=== PATIENT | female | born 1935 | race Caucasian/White ===

== ENCOUNTER 2017-08-29 12:56 | Inpatient (IN) | payer OTHER, MEDICAID ==
[~2017-08-29] VITALS: Ht 154.9 cm; Wt 54.0 kg
[~2017-08-29 12:56] MED LIST: ACET-1172 PO; ARIP5TAB10 PO; BENA10TA2 PO; BETH50TA8 PO; CALC-226 PO; CARV6.2554 PO; CEPH250C PO; CLOP75TA2 PO; DICL75TA5 PO; DICY10CA13 PO; ESCI20TA PO; GLIP5TAB13 PO; GLYB1TAB2 PO; HYDR-3698 PO; ISOS60TA6 PO; LANS30CA10 PO; LIPA1CAP5 PO; LORA-258 PO; MELO15TA13 PO; NITR-85 PO; SAXA1TBM3 PO; SIMV40TA2 PO; VERA300C6 PO
[2017-08-29 13:00] VITALS: BP_SYST 73
--- NOTE | 2017-08-29 13:00 | NUR ---
Pt c/o generalized weakness, dizziness, Nausea x 1 hour. Pt AAOx2, confused, able to state name and describe symptoms. Pt denies c/o C/P or SOB.
--- NOTE | 2017-08-29 13:00 | NUR ---
PATIENT BROUGHT IN BY ALS FOR NAUSEA, VOMITING, AND DIZZINESS WORST FOR THE PAST HOUR. HYPOTENSIVE UPON ARRIVAL, DENIES PAIN, LANGUAGE BARRIER NOTED FRISIAN SPEAKING. PLACED IN BED 3.
--- NOTE | 2017-08-29 13:02 | NUR ---
MD PEÑALOZA AT BEDSIDE.
[2017-08-29] MEDS ORDERED: NACL 0.9% 1,000 ML IV ONE ×2 (13:15→14:15)
[2017-08-29 13:45] LABS: BASOPHILS # (AUTO) 0.1 K/uL (0.0-0.2); EOSINOPHILS # (AUTO) 0.2 K/uL (0.0-0.4); HEMOGLOBIN 12.1 g/dL (12.0-16.0); LYMPHOCYTES # (AUTO) 6.5 K/uL (1.0-5.5); MEAN CORPUSCULAR VOLUME 90 fL (79.0-98.0); MONOCYTES # (AUTO) 0.7 K/uL (0.0-1.0)
--- NOTE | 2017-08-29 13:50 | NUR ---
Unsuccessful PIV attempts x [address] Cutler.
[2017-08-29 13:53] LABS: BASOPHILS % (AUTO) 0.8 % (0.0-2.0); EOSINOPHILS % (AUTO) 1.3 % (0.0-4.0); HEMATOCRIT 36.7 % (36-48); LYMPHOCYTES % (AUTO) 45.7 % (20.5-51.5); MEAN CORPUSCULAR HEMOGLOBIN 30 pg (27-31); MEAN CORPUSCULAR HGB CONC 33 % (32-36); MONOCYTES % (AUTO) 4.6 % (1.7-9.3); NEUTROPHILS # (AUTO) 6.6 K/uL (1.8-7.7); NEUTROPHILS % (AUTO) 47.6 % (40.0-70.0); PLATELET COUNT (AUTO) 241 K/uL (130-430); RED BLOOD CELL COUNT(AUTO) 4.11 MIL/uL (4.2-6.2); RED CELL DISTRIBUTION WIDTH 13.1 % (9.0-15.0); WHITE BLOOD COUNT (AUTO) 14.1 K/uL (4.8-10.8)
[2017-08-29 13:54] LABS: ANION GAP 15 (5-15); CALCIUM 9.1 mg/dL (8.4-11.0); CHLORIDE 101 mmol/L (98-107); CREATININE 1.46 mg/dL (0.55-1.30); GLUCOSE 334 mg/dL (70-99); POTASSIUM 5.4 mmol/L (3.5-5.1); SODIUM SERUM 135 mmol/L (136-145); UREA NITROGEN, BLOOD 20 mg/dL (8-21)
[2017-08-29 13:58] LABS: PROTHROMBIN TIME 10.4 SECS (9.5-12.5)
[2017-08-29 13:59] LABS: ALANINE AMINOTRANSFERASE 30 U/L (12-78); ALBUMIN 3.6 g/dL (3.4-4.8); ASPARTATE AMINOTRANSFERASE 25 U/L (10-37); TOTAL BILIRUBIN 0.3 mg/dL (0.0-1.0)
--- NOTE | 2017-08-29 14:05 | NUR ---
X-ray at bedside.
[2017-08-29] MEDS ORDERED: LEVOFLOXACIN 500 MG/D5W 100 ML IV ONE (14:30)
--- NOTE | 2017-08-29 14:30 | NUR ---
# 16 FR Dawson catheter with use of sterile technique. Immediate return of 50 clear yellow urine noted. Bedside drainage bag placed below level of bladder. Urine sample collected and sent to lab. Pt tolerated procedure well. Patient unable to toilet self.
--- NOTE | 2017-08-29 14:50 | NUR ---
Pt c/o pain to Right upper arm. No swelling or redness noted to site. No blood return to PIV. PIV discontinued with angiocath tip intact, secured with pressure dsg, no bleeding. Pt able to move Right arm without difficulty, skin pink, warm, dry with cap refill < 3 sec to nail beds.
[2017-08-29 14:52] LABS: BILIRUBIN,URINE NEGATIVE (NEGATIVE); CLARITY/URINE CLEAR (CLEAR); COLOR,URINE YELLOW (YELLOW); GLUCOSE,URINE TRACE (NEGATIVE); KETONES,URINE NEGATIVE (NEGATIVE); LEUKOCYTE ESTERASE ,URINE 1+ (NEGATIVE); NITRITE, URINE NEGATIVE (NEGATIVE); PH,URINE 5.5 (5.0-8.0); PROTEIN URINE TRACE (NEGATIVE); UROBILINOGEN,URINE 0.2 (0.2-1.0)
[2017-08-29 14:56] LABS: BLOOD, URINE TRACE (NEGATIVE)
[2017-08-29 15:13] LABS: BACTERIA,URINE FEW /HPF (None Seen)
--- NOTE | 2017-08-29 15:23 | NUR ---
Patient will be admitted to care of Dr. Landry. Admitted to Tele unit. Will go to room 104A. Belongings list completed. Summary report printed. Report will be given at bedside.
[2017-08-29] MEDS ORDERED: DICY10CA59 PO (15:47)
[2017-08-29] MEDS ORDERED: BENA20TA2 PO (15:47)
[2017-08-29] MEDS ORDERED: VERA120C2 PO (15:47)
[2017-08-29] MEDS ORDERED: LIP10 PO (15:47)
[2017-08-29] MEDS ORDERED: SULF1TAB3 PO (15:47)
--- NOTE | 2017-08-29 15:47 | NUR ---
Medication reconciliation completed with information provided by pt. Any prior medication reconciliation on file was reviewed and corrected.
--- NOTE | 2017-08-29 15:53 | NUR ---
ADMISSION NOTE Received patient from ER via uma, received report from MAXX ETIENNE. Patient admitted with diagnosis of UTI/POSSIBLE SEPSIS/DEHYDRATION. Patient oriented to hospital routine, call light, toileting and safety-patient verbalized understanding.
[2017-08-29 15:54] VITALS: BP_SYST 118
--- NOTE | 2017-08-29 16:10 | NUR ---
O2 Patient placed on 2L via NC, saturation is 88%, patient has cold extremities and is wearing fingernail malian as well, continuing to monitor. Addendum: 08/29/17 at 1617 by Benitez Quesada RN Placed the patient on 4L via NC, O2 saturation now 92%, breathing is even and unlabored.
--- NOTE | 2017-08-29 16:17 | NUR ---
Transfer of Care to Ana ETIENNE, endorsed report, O2 saturation, sepsis protocol initiated in ER and reassessment needed, patient potassium level 5.4 and MD ordered 1/2NS + 40 MEQ of potassium for maintenance IVF recommend different order.
[2017-08-29 16:22] VITALS: BP_SYST 118
[2017-08-29] MEDS ORDERED: POTASSIUM CHLORIDE 40 MEQ in 0.45% NACL 1,000 ML IV SCH (17:00)
--- NOTE | 2017-08-29 17:30 | NUR ---
DR. GLEZ NOTIFIED THE DOCTOR THAT PATIENT'S POTASSIUM IS HIGH AND IV FLUIDS WITH POTASSIUM IS HIGH, DR. GLEZ ORDERED FOR PATIENT TO BE ON 1/2 NS AT 100 AND HE SAID HE WILL BE IN TO SEE THE PATIENT TO PUT IN ORDERS.
[2017-08-29] MEDS: 0.45% NACL 1,000 ML IV SCH (17:41)
--- NOTE | 2017-08-29 17:42 | NUR ---
RN ROUND PATIENT CURRENTLY EATING DINNER AT THIS TIME, PATIENT IN STABLE CONDITION, CALL GUZMAN WITHIN REACH, WILL CONTINUE TO MONITOR PATIENT, FALL PRECAUTIONS IN PLACE.
[2017-08-29] MEDS ORDERED: ONDANSETRON HCL 4 MG/2 ML VIAL IVP PRN (18:00)
[2017-08-29] MEDS: MORPHINE 2 MG/ML INJ. SYRINGE IVP PRN (18:26)
[2017-08-29 18:30] VITALS: BP_SYST 135
--- NOTE | 2017-08-29 18:32 | NUR ---
CLOSING NOTE PATIENT GIVEN PAIN MEDICATION DUE TO GENERALIZED PAIN, PATIENT NOW ASKING FOR LIGHT TO BE TURNED OFF TO GET SOME REST, ALL NEEDS MET, WILL ENDORSE PATIENT TO CANDY COOKER HELPER NURSE, CALL GUZMAN LEFT WITHIN REACH, BED IN LOWEST POSITION, SIDE RAILS UP, FALL PRECAUTIONS IN PLACE.
[2017-08-29] MEDS: INSULIN REGULAR, HUMAN 100 UNITS/ML, 10 ML VIAL (novoLIN R) SUBCUT PRN ×2 (19:25→21:20)
[2017-08-29 20:00] VITALS: BP_SYST 131
[2017-08-29] MEDS ORDERED: DICLOFENAC SODIUM 25 MG TABLET.DR PO SCH (20:00)
[2017-08-29] MEDS ORDERED: ACETAMINOPHEN/CODEINE 300 MG-30 MG TABLET PO SCH (20:00)
--- NOTE | 2017-08-29 20:00 | NUR ---
Initial PM Note Pt was received lying in bed fully awake, alert and oriented x3. Pt is Lithuanian Speaking and able to make her needs known. No c/o pain or discomfort at this time. O2 sat is 96% on oxygen at 2l/min per NC. IVF of 1/2 NS is infusing well in LAC at 100ml/hr without any signs of infiltration. Dawson Cath to gravity drainage noted with clear yellowish urine. Fall and safety precautions are in place. Call light is with pt and bed alarm is on.
--- NOTE | 2017-08-29 20:40 | NUR ---
Family Pt's daughter Steph Bautista called and was given update through an Life Sciences Manager. Steph stated she will call again tomorrow.
[2017-08-29] MEDS ORDERED: CEPHALEXIN 250 MG CAPSULE PO SCH (21:00)
[2017-08-29] MEDS: LEVOFLOXACIN 250 MG/D5W 50 ML IV SCH (21:00)
[2017-08-29] MEDS ORDERED: DICYCLOMINE HCL 10 MG CAPSULE PO SCH (21:00)
--- NOTE | 2017-08-29 21:00 | NUR ---
Report Report was given to Nurse Stefanie Caba for continuity of pt's nursing care.
--- NOTE | 2017-08-29 21:01 | NUR ---
OPENING NOTES PATIENT IN BED RESTING. NO ACUTE DISTRESS OR SOB NOTED. PATIENT ABLE TO VERBALIZE UNDERSTANDING OF CALL LIGHT AND HOW TO USE IT. STATES NAME AND DATE OF . IV PATENT WITH NO REDNESS NOTED. IVF RUNNING ORDERED. ALL NEEDS MET AT THIS TIME.
[2017-08-29] MEDS: BETHANECHOL CHLORIDE 25 MG TABLET (URECHOLINE) PO SCH (21:15)
[2017-08-29] MEDS: CARVEDILOL 6.25 MG TABLET (COREG) PO SCH (21:16)
[2017-08-29] MEDS: ARIPiprazole 5 MG TAB PO SCH (21:16)
[2017-08-29] MEDS: CITALOPRAM HYDROBROMIDE 20 MG TABLET PO SCH (21:16)
--- NOTE | 2017-08-29 23:05 | NUR ---
Rounds Patient in bed sleeping. No acute distress or SOB noted at this time. Breathing even and unlabored. all needs met at this time. Bed in lowest position with bed alarm on and call light with patient.
[2017-08-30 00:30] VITALS: BP_SYST 132
[2017-08-30] MEDS: 0.45% NACL 1,000 ML IV SCH ×3 (02:58→14:52)
[2017-08-30] MEDS: MORPHINE 2 MG/ML INJ. SYRINGE IVP PRN ×2 (03:02→16:38)
--- NOTE | 2017-08-30 03:02 | NUR ---
Patient c/o headache Administered morphine as ordered per pain scale. Patient tolerated well. Educated patient on the use of the call light and when to use it. Patient verbalized understanding. All needs met. Bed in lowest position with bed alarm on and call light with patient.
--- NOTE | 2017-08-30 05:34 | NUR ---
Rounds Patient in bed sleeping. Breathing even and unlabored. No acute distress or SOB noted. No facial grimacing or guarding. Bed in lowest position with bed alarm on and call light with patient.
[2017-08-30] MEDS: INSULIN REGULAR, HUMAN 100 UNITS/ML, 10 ML VIAL (novoLIN R) SUBCUT PRN ×4 (06:24→20:35)
--- NOTE | 2017-08-30 06:59 | NUR ---
Closing notes Patient in bed resting. No acute distress or SOB noted.Breathing even and unlabored. All needs met throughout shift. Will endorse to day shift nurse patient's plan of care.
[2017-08-30 07:26] LABS: BASOPHILS # (AUTO) 0.1 K/uL (0.0-0.2); BASOPHILS % (AUTO) 0.7 % (0.0-2.0); EOSINOPHILS # (AUTO) 0.1 K/uL (0.0-0.4); EOSINOPHILS % (AUTO) 1.2 % (0.0-4.0); HEMATOCRIT 33.5 % (36-48); HEMOGLOBIN 11.2 g/dL (12.0-16.0); LYMPHOCYTES # (AUTO) 3.9 K/uL (1.0-5.5); LYMPHOCYTES % (AUTO) 32.9 % (20.5-51.5); MEAN CORPUSCULAR HEMOGLOBIN 30 pg (27-31); MEAN CORPUSCULAR HGB CONC 34 % (32-36); MEAN CORPUSCULAR VOLUME 89 fL (79.0-98.0); MONOCYTES % (AUTO) 8.2 % (1.7-9.3); NEUTROPHILS # (AUTO) 6.9 K/uL (1.8-7.7); PLATELET COUNT (AUTO) 213 K/uL (130-430); RED BLOOD CELL COUNT(AUTO) 3.77 MIL/uL (4.2-6.2); RED CELL DISTRIBUTION WIDTH 13.2 % (9.0-15.0)
--- NOTE | 2017-08-30 07:45 | NUR ---
opening note pt in bed asleep, equal chest rise noted. ivf 1/2 ns infusing at this time, lawrence also noted, nasal canula in place. call light is visibly within reach, bed alarm in place with bed in lowest position.will monitor
[2017-08-30 07:53] LABS: ANION GAP 7 (5-15); CALCIUM 8.4 mg/dL (8.4-11.0); CHLORIDE 108 mmol/L (98-107); CREATININE 1.06 mg/dL (0.55-1.30); GLUCOSE 154 mg/dL (70-99); POTASSIUM 4.7 mmol/L (3.5-5.1); SODIUM SERUM 139 mmol/L (136-145); UREA NITROGEN, BLOOD 16 mg/dL (8-21)
[2017-08-30 08:00] VITALS: BP_SYST 153
[2017-08-30] MEDS ORDERED: MELOXICAM 7.5 MG TABLET PO SCH (08:30)
[2017-08-30] MEDS ORDERED: NITROFURANTOIN MONOHYD/M-CRYST 100 MG CAPSULE PO SCH (09:00)
[2017-08-30] MEDS ORDERED: BENAZEPRIL HCL 10 MG TABLET (LOTENSIN) PO SCH (09:00)
[2017-08-30] MEDS ORDERED: SIMVASTATIN 40 MG TABLET PO SCH (09:00)
[2017-08-30] MEDS: CLOPIDOGREL BISULFATE 75 MG TABLET PO SCH (09:12)
[2017-08-30] MEDS: LORazepam 1 MG TABLET PO SCH (09:12)
[2017-08-30] MEDS: CARVEDILOL 6.25 MG TABLET (COREG) PO SCH ×2 (09:13→20:22)
[2017-08-30] MEDS: VERAPAMIL HCL 120 MG TABLET.SA PO SCH (09:13)
[2017-08-30] MEDS: BETHANECHOL CHLORIDE 25 MG TABLET (URECHOLINE) PO SCH ×2 (09:13→20:21)
[2017-08-30] MEDS: CALCIUM CARBONATE/VITAMIN D3 1 TAB TABLET PO SCH (09:13)
--- NOTE | 2017-08-30 09:18 | NUR ---
am meds ativan calan, coreg, calcium carbonate, plavix, urecholine all given. pt tolerated well. no distress noted. safety maintained.
--- NOTE | 2017-08-30 09:29 | NUR ---
Nutrition Update Moises Scale 16 noted. Pt admitted for UTI/possible sepsis, dehydration. Diet: full liquid BMI: 22.3 kg/m2 RD to follow per nutrition care standards.
--- NOTE | 2017-08-30 11:19 | NUR ---
bs check blood sugar -267 - 6 units given as ordered
--- NOTE | 2017-08-30 13:00 | NUR ---
rounds family at bedside, pt is asleep no needs at this time
[2017-08-30 13:23] VITALS: BP_SYST 143; BP_SYST 164
--- NOTE | 2017-08-30 14:53 | NUR ---
new ivf fluids 1/2 ns hung at this time
--- NOTE | 2017-08-30 16:47 | NUR ---
BS CHECK/PAIN MED BLOOD SUGAR CHECKED- 240 - GIVEN 4 UNITS ORDERED. P ALSO COMPLAINED OF GENERALIZED PAIN 7/10 GIVEN MORPHINE ORDERS. SAFETY MAINTAINED, WILL CONTINUE TO MONITOR,
[2017-08-30 16:58] VITALS: BP_SYST 146
--- NOTE | 2017-08-30 19:10 | NUR ---
Opening note Patient is awake, alert, and oriented x4. Patient denies pain and nausea/vomiting at this time. No s/s of respiratory distress noted. Breathing is even and unlabored. Plan of care reviewed and patient reoriented to call light, patient verbalizes understanding. Bed is down, locked, side rails up x2, call light within reach. Bed alarm on. Will continue to monitor.
--- NOTE | 2017-08-30 19:26 | NUR ---
closing note all need met through shift, care endorsed to shift superintendent.
[2017-08-30 20:00] VITALS: BP_SYST 178
[2017-08-30] MEDS: LEVOFLOXACIN 250 MG/D5W 50 ML IV SCH (20:20)
[2017-08-30] MEDS: ATORVASTATIN 10 MG TABLET PO SCH (20:21)
[2017-08-30] MEDS: ARIPiprazole 5 MG TAB PO SCH (20:22)
[2017-08-30] MEDS: CITALOPRAM HYDROBROMIDE 20 MG TABLET PO SCH (20:22)
[2017-08-30] MEDS: TEMAZEPAM 15 MG CAPSULE PO SCH (20:25)
--- NOTE | 2017-08-30 21:36 | NUR ---
Rounds Patient is resting in bed at this time. No s/s of distress noted. Denies needs. Bed is down, locked, side rails up x2, call light within reach. Bed alarm on. Will continue to monitor.
--- NOTE | 2017-08-30 23:40 | NUR ---
Rounds Patient is resting in bed with eyes closed. No s/s of distress noted at this time. Breathing is even and unlabored. Bed is down, locked, side rails up x2, call light within reach. Bed alarm on. Will continue to monitor.
[2017-08-31 01:04] VITALS: BP_SYST 180
--- NOTE | 2017-08-31 01:20 | NUR ---
Rounds Patient is resting quietly in bed at this time. No s/s of respiratory distress. Breathing is even and unlabored. Bed is down, locked, side rails up x2, call light within reach. Bed alarm on. Will continue to monitor.
[2017-08-31] MEDS: 0.45% NACL 1,000 ML IV SCH ×2 (01:30→16:52)
--- NOTE | 2017-08-31 03:05 | NUR ---
Rounds Patient is resting quietly in bed with eyes closed. No s/s of distress noted. Breathing is even and unlabored. Bed is down, locked, side rails up x2, call light within reach. Bed alarm on. Will continue to monitor.
[2017-08-31] MEDS: INSULIN REGULAR, HUMAN 100 UNITS/ML, 10 ML VIAL (novoLIN R) SUBCUT PRN ×4 (06:34→20:46)
--- NOTE | 2017-08-31 06:57 | NUR ---
Closing note Patient is resting in bed awaiting breakfast in bed. Patient denies pain, nausea/vomiting. No s/s of respiratory distress. Breathing is even and unlabored. All needs met and anticipated by noc shift nurses. Bed is down, locked, side rails up x2, call light within reach. Bed alarm on. Will endorse to day shift nurse.
--- NOTE | 2017-08-31 07:35 | NUR ---
opening note pt awake alert, in high fowlers. pt stated she has pain all over her body-08/29. but denies any sob. pt also stated she wants to use the bathroom- pt was placed on bedpan at this time. safety was maintained.
[2017-08-31 07:43] VITALS: BP_SYST 200
[2017-08-31] MEDS: MORPHINE 2 MG/ML INJ. SYRINGE IVP PRN (07:43)
[2017-08-31] MEDS: CARVEDILOL 6.25 MG TABLET (COREG) PO SCH (07:44)
[2017-08-31] MEDS: VERAPAMIL HCL 120 MG TABLET.SA PO SCH (07:45)
--- NOTE | 2017-08-31 07:50 | NUR ---
patient blood pressure was elevated - coreg and calan given early . md was also paged to make aware of blood pressure reading.
--- NOTE | 2017-08-31 08:15 | NUR ---
dr camara paged- awaiting call back
[2017-08-31] MEDS: CALCIUM CARBONATE/VITAMIN D3 1 TAB TABLET PO SCH (08:30)
[2017-08-31] MEDS: LORazepam 1 MG TABLET PO SCH (08:31)
[2017-08-31] MEDS: BETHANECHOL CHLORIDE 25 MG TABLET (URECHOLINE) PO SCH ×2 (08:31→20:39)
[2017-08-31] MEDS: CLOPIDOGREL BISULFATE 75 MG TABLET PO SCH (08:31)
[2017-08-31 09:00] VITALS: BP_SYST 185
--- NOTE | 2017-08-31 09:18 | NUR ---
spoke with dr vazquez- new orders given and carried out
--- NOTE | 2017-08-31 09:26 | NUR ---
CONSULTATION PAGED/CALLED Reason for Consultation: [] CHEST PAIN Person Who was Notified: [] YESENIA Consulting Physician: [] DR Homar MURDOCK Application Integrator Specialty: [] CARDIOLOGY Ordering Physician: [] DR Yury TOLBERT
--- NOTE | 2017-08-31 10:06 | NUR ---
MD ROUNDS DR SCHNEIDER WITH PATIENT AT BEDSIDE.
--- NOTE | 2017-08-31 11:43 | NUR ---
BS CHECK BLOOD SUGAR CHECKED-310, 8 UNITS REGULAR INSULIN GIVEN ORDERED. SAFETY MAINTAINED. PT TO WORK WITH PHYSICAL THERAPY SHORTLY.
[2017-08-31 12:30] VITALS: BP_SYST 156
--- NOTE | 2017-08-31 14:29 | NUR ---
Dietitian Recommendations * Recommend continuing full liquid diet per MD * Consider advance diet if/when medically appropriate (CCHO, 2 gm Na diet, Glucerna BID to provide an additional 440 kcal/day and 20 gm protein/day) LP, RD Please refer to Nutrition Assessment for details.
--- NOTE | 2017-08-31 14:42 | NUR ---
SPOKE WITH DR MURDOCK MADE AWARE OF PATIENTS FIRST TROPONIN, WELL BLOOD PRESSURE
--- NOTE | 2017-08-31 15:26 | NUR ---
rounds pt sitting in bed watching tv. pt stated she is not having any pain and does not feel short of breath. stated she has no needs at this time. call light is visibly within reach, with bed alarm in place in the lowest position.
[2017-08-31 16:20] VITALS: BP_SYST 180
--- NOTE | 2017-08-31 16:56 | NUR ---
med pass/bs check blood sugar checked-246- 4 units regular insulin given. new ivf hung at this time dr taylor chavez at this time- made aware of pts blood pressure, md will change medications as needed Addendum: 08/31/17 at 1828 by Dottie Buckley RN blood sugar-247
[2017-08-31] MEDS ORDERED: CARVEDILOL 12.5 MG TABLET (COREG) PO ONE (18:00)
--- NOTE | 2017-08-31 18:09 | NUR ---
MED PASS 1X DOSE COREG GIVEN AT THIS TIME ORDERED. SAFETY MAINTAINED. WILL CONTINUE TO MONITOR
--- NOTE | 2017-08-31 18:46 | NUR ---
closing note all needs met through shift, safety was maintained. will endorse care to hog worker.
--- NOTE | 2017-08-31 19:48 | NUR ---
Initial Note: Received handoff report from dayshift RN. Patient is awake in bed, no signs or symptoms of acute distress noted. Alert and oriented x3. IV 22G to patient's left AC noted with fluids running well. IV saline lock 24G noted to patient's thumb noted, site patent and benign. Dawson catheter noted draining clear yellow urine to gravity. Patient refused bed alarm and SCD's as she ambulates frequently to bedside chair. Safety precautions in place. Call light is with patient. Will continue with plan of care.
[2017-08-31 20:00] VITALS: BP_SYST 161
[2017-08-31] MEDS: ARIPiprazole 5 MG TAB PO SCH (20:41)
[2017-08-31] MEDS: VALSARTAN 160 MG TABLET (DIOVAN) PO SCH (20:41)
[2017-08-31] MEDS: CITALOPRAM HYDROBROMIDE 20 MG TABLET PO SCH (20:41)
[2017-08-31] MEDS: ATORVASTATIN 10 MG TABLET PO SCH (20:41)
[2017-08-31] MEDS: LEVOFLOXACIN 250 MG/D5W 50 ML IV SCH (20:42)
[2017-08-31] MEDS: TEMAZEPAM 15 MG CAPSULE PO SCH (20:42)
--- NOTE | 2017-08-31 21:46 | NUR ---
Rounds: Patient is awake in bed watching TV, does not show any signs or symptoms of acute distress. IV fluids infusing well to patient's left AC. Safety and fall precautions in place. Will continue to monitor.
--- NOTE | 2017-08-31 23:50 | NUR ---
Rounds: patient sleeping, no signs or symptoms of acute distress noted. Breathing is even and unlabored. Dawson catheter remains draining to gravity. Safety and fall precautions in place. WIll continue to monitor.
[2017-09-01 00:04] VITALS: BP_SYST 167
--- NOTE | 2017-09-01 01:47 | NUR ---
Rounds: Patient is asleep, does not show any signs or symptoms of acute distress. Breathing is even and unlabored. Call light is with patient. Safety precautions in place. Will continue to monitor.
[2017-09-01] MEDS: MORPHINE 2 MG/ML INJ. SYRINGE IVP PRN (02:04)
--- NOTE | 2017-09-01 03:46 | NUR ---
Rounds: Patient is asleep in bed making audible breath sounds. Breathing even and unlabored, no signs or symptoms of acute distress noted. Call light is with patient, safety precautions remain in place. Will continue to monitor.
--- NOTE | 2017-09-01 05:48 | NUR ---
Rounds: Patient is asleep in bed, does not show signs or symptoms of acute distress. Breathing even and unlabored. Safety precautions in place. Will continue to monitor.
[2017-09-01] MEDS: INSULIN REGULAR, HUMAN 100 UNITS/ML, 10 ML VIAL (novoLIN R) SUBCUT PRN ×2 (06:32→11:47)
--- NOTE | 2017-09-01 06:50 | NUR ---
Closing note: Patient is asleep in bed. IV fluids remain infusing to patient's left AC. Safety precautions remain in place. All needs met and attended to, will endorse to gaby RN.
[2017-09-01 06:54] LABS: ALANINE AMINOTRANSFERASE 73 U/L (12-78); ALBUMIN 3.5 g/dL (3.4-4.8); ANION GAP 6 (5-15); ASPARTATE AMINOTRANSFERASE 32 U/L (10-37); CALCIUM 9.2 mg/dL (8.4-11.0); CHLORIDE 99 mmol/L (98-107); CHOLESTEROL 176 mg/dL (<200); CREATININE 0.82 mg/dL (0.55-1.30); GLUCOSE 177 mg/dL (70-99); HDL CHOLESTEROL 56 mg/dL (>55); LDL CHOLESTEROL 104 mg/dL (<100); SODIUM SERUM 133 mmol/L (136-145); TOTAL BILIRUBIN 0.4 mg/dL (0.0-1.0); TRIGLYCERIDES 123 mg/dL (30-150); UREA NITROGEN, BLOOD 13 mg/dL (8-21)
--- NOTE | 2017-09-01 07:40 | NUR ---
INITIAL NOTES RECEIVED PATIENT FROM DEPARTMENT HELPER. PATIENT STABLE. A/OX3. TOGOLESE SPEAKING. DENIES PAIN. ROOM AIR. NO ACUTE DISTRESS. NO SOB. RESPIRATION EVEN AND UNLABORED. SKIN WARM AND DRY TO TOUCH. PATIENT C/O PAIN TO IV SITE, LAC; CURRENT IV HELD, WILL RESTART IV. MORELOS CATH INTACT AND PATENT AND DRAINING YELLOW URINE. ORIENTED PATIENT TO CALL LIGHT AND TO USE FOR ASSIST, PT VERBALIZED UNDERSTANDING. ALL NEEDS MET. CALL LIGHT IN REACH. CONT TO MONITOR.
[2017-09-01 08:05] VITALS: BP_SYST 189
--- NOTE | 2017-09-01 08:05 | NUR ---
IV RE-INSERTION: Complaining of pain to IV site. Restarted on left hand. Successful after x1 attempts. Resumed current IVF of 1/2 NS and regulated @ 50cc per hour. Will observe for any signs of infiltration.
[2017-09-01] MEDS: LORazepam 1 MG TABLET PO SCH (08:10)
[2017-09-01] MEDS: VALSARTAN 160 MG TABLET (DIOVAN) PO SCH (08:11)
[2017-09-01] MEDS: CLOPIDOGREL BISULFATE 75 MG TABLET PO SCH (08:12)
[2017-09-01] MEDS: VERAPAMIL HCL 120 MG TABLET.SA PO SCH (08:12)
[2017-09-01] MEDS: BETHANECHOL CHLORIDE 25 MG TABLET (URECHOLINE) PO SCH (08:13)
[2017-09-01] MEDS: CALCIUM CARBONATE/VITAMIN D3 1 TAB TABLET PO SCH (08:13)
--- NOTE | 2017-09-01 08:15 | NUR ---
meds PATIENT STABLE. DENIES PAIN. BP 189/90, HR 87. ALL DUE MEDS INCLUDING ANTIHYPERTENSIVES ADMINISTERED ORDERED, DANNIE WELL. WILL NOTIFY MD OF BP. CONT TO MONITOR.
[2017-09-01] MEDS ORDERED: CARVEDILOL 12.5 MG TABLET (COREG) PO SCH (09:00)
--- NOTE | 2017-09-01 09:54 | NUR ---
SEEN AND EXAMINED BY AT BEDSIDE. REPORTED TO MD OF BP189/90, HR 90 AND ANTIHYPERTENSIVE MEDS ADMINISTERED. MD WILL FOLLOW UP. PATIENT STABLE. ALL NEEDS MET. CONT TO MONITOR.
[2017-09-01] MEDS ORDERED: FUROSEMIDE 40 MG TABLET PO ONE (10:30)
--- NOTE | 2017-09-01 10:30 | NUR ---
d/c lawrence PATIENT STABLE. D/C LAWRENCE CATH ORDERED, PATIENT DANNIE WELL WITH NO COMPLICATIONS NOTED. DRAINAGE BAG NOTED WITH 400cc CLEAR YELLOW URINE. ALL NEEDS MET. CONT TO MONITOR. CALL LIGHT IN REACH.
--- NOTE | 2017-09-01 11:03 | NUR ---
P.T. PATIENT SEEN BY PHYSICAL THERAPY. PATIENT DENIES PAIN. PATIENT STABLE. CONT TO MONITOR.
--- NOTE | 2017-09-01 11:50 | NUR ---
BLOOD SUGAR PATIENTS BLOOD SUGAR IS AT 296 WITH SIX UNITS OF INSULIN ADMINISTERED ORDERED PER SLIDING SCALE, DANNIE WELL. ALL NEEDS MET. CONT TO MONITOR. CALL LIGHT IN REACH. NIECE AT BEDSIDE VISITING.
[2017-09-01 12:00] VITALS: BP_SYST 162
--- NOTE | 2017-09-01 13:30 | NUR ---
PHYSICAL THERAPY CO-SIGN The Physical Therapy Progress Notes documented by [employer] have been reviewed. I concur with the documentation of this CASEWORKER. Plan: continue PT as per plan of care if she remains in this hospital. Reviewed/Co-Signed by: Joan Renteria, PT Documentation Done by: Jm Lion, CASEWORKER Addendum: 09/01/17 at 1334 by Joan Renteria PT Amended: Links added.
--- NOTE | 2017-09-01 13:36 | NUR ---
NOTES PATIENT RESTING IN BED, EASILY AROUSABLE. DENIES ANY PAIN. CURRENT BP 137/78 AND HR 78. ALL NEEDS MET. CONT TO MONITOR. CALL LIGHT IN REACH.
--- NOTE | 2017-09-01 14:20 | NUR ---
NOTES ASSISTED PATIENT ON TO BEDPAN, DANNIE WELL. PATIENT VOIDED YELLOW URINE WITH NO DIFFICULTY. ALL NEEDS MET. CONT TO MONITOR. CALL LIGHT IN REACH Addendum: 09/01/17 at 1514 by Joaquina Devlin RN FAMILY AT BEDSIDE.
--- NOTE | 2017-09-01 14:30 | NUR ---
NOTES PATIENT AWAKE IN BED. FAMILY AT BEDSIDE DISCUSSED PLAN OF CARE. PROVIDED TEACHING REGARDING BLOOD PRESSURE AND ANTIHYPERTENSIVE MEDICATIONS AND DIABETIC TEACHING DONE WITH PATIENT ON CCHO DIET AND SHOULD CONTINUE AT HOME; FAMILY AND PATIENT VERBALIZED UNDERSTANDING.
--- NOTE | 2017-09-01 15:40 | NUR ---
SEEN BY AT BEDSIDE; OKAY FOR DISCHARGE. CONT TO MONITOR. CALL LIGHT IN REACH.
[2017-09-01 15:49] VITALS: BP_SYST 148
--- NOTE | 2017-09-01 15:50 | NUR ---
resp democrat CALLED CLINT GUDINO, SISTER, TO INFORM WILL BE DISCHARGING PATIENT. PER CLINT, PATIENTS SISTER IN LAW JUAN FRANCISCO PRINCE WILL AP PROCESSOR PATIENT FOR DISCHARGE FROM HOSPITAL.
[2017-09-01 16:34] VITALS: BP_SYST 115
--- NOTE | 2017-09-01 16:45 | NUR ---
D/C Patient Patient given medication reconciliation form and D/C instructions in croatian. Exit Care provided. Patient verbalized understanding. MD discussed with patient the results and treatment provided. Ambulatory with assist for discharge to home. Patient in stable condition, ID band removed. IV catheter removed, intact and dressing applied, no active bleeding. Patient educated on pain management and diabetic teaching done, patient and family verbalized understanding. All belongings sent with patient.
--- NOTE | 2017-09-01 17:09 | NUR ---
[facility] obtained pt's HH order. [facility] faxed pt's inquiry to [facility], per order. [facility] spoke with Danelle who stated pt is accepted. Per Danelle will contact pt to provide start of care information. [facility] informed pt's nurse Joaquina who informed [facility] pt had DC.
[2017-09-02] MEDS ORDERED: FUROSEMIDE 40 MG TABLET PO SCH (09:00)
--- NOTE | 2017-09-05 14:33 | NUR ---
Discharge Follow Up Phone Call TIRE DEBEADER phoned the number listed for patient, . The person who answered stated that patient wasn't there, unable to determine if this is a wrong number due to the limited Croatian spoken by the person who answered the phone. TIRE DEBEADER phoned the number listed for patient's daughter, Steph [phone], and left a voicemail message. [facility] phoned [facility] and spoke with Ania, . Patient had a first visit on 09/02/17 and has been referred to PT. Assistant Sales Center Manager will continue to attempt to contact patient's daughter. Addendum: 09/07/17 at 1114 by Shyanne Tran LCSW TIRE DEBEADER phoned patient's daughter, Steph. A family member translated the call. The patient is doing okay. They have made a follow up appointment with Dr Landry. [facility] has been coming to the home and they are satisfied with the services. Patient is using her blood glucose monitor as directed and her sugars are staying stable. They have no questions or concerns.
== END 2017-09-01 16:40 | disposition home health service (06) | DRG 871 ==
LOC: SED 12:56 → STU 15:23
PROVIDERS: ADMIT Family Medicine; ATTEND Family Medicine
DX: A41.9 Sepsis, unspecified organism (principal); N17.0 Acute kidney failure with tubular necrosis; I50.43 Acute on chronic combined systolic (congestive) and diastolic (congestive) heart failure; N39.0 Urinary tract infection, site not specified; E87.2 Acidosis; E11.9 Type 2 diabetes mellitus without complications; E86.0 Dehydration; F03.90 Unspecified dementia, unspecified severity, without behavioral disturbance, psychotic disturbance, mood disturbance, and anxiety; I11.0 Hypertensive heart disease with heart failure; K21.9 Gastro-esophageal reflux disease without esophagitis; M19.90 Unspecified osteoarthritis, unspecified site; F32.9 Major depressive disorder, single episode, unspecified; F99 Mental disorder, not otherwise specified; F41.9 Anxiety disorder, unspecified; Z88.0 Allergy status to penicillin; Z86.73 Personal history of transient ischemic attack (TIA), and cerebral infarction without residual deficits
CPT/HCPCS: 36415; 71045; 80048; 80053; 80061; 81000-TC; 82962; 83605; 83880; 84484; 85025; 85610-TC; 85730-TC; 87040-TC; 87086; 93005; 93306; 96361; 96365; 97110-GP; 97116-GP; 97530-GP; 99291; J1815; J1956; J2270; J3480

== ENCOUNTER 2022-10-12 13:08 | Inpatient (IN) | payer OTHER, MEDICAID ==
[~2022-10-12] VITALS: Ht 154.9 cm; Wt 48.5 kg
[~2022-10-12 13:08] MED LIST changes: +AMLO5TAB4 PO; +ASPI-1393 PO; +ATOR20TA64 PO; +BENA-6 PO; -BENA10TA2 PO; -CALC-226 PO; +CALC-823 PO; -CEPH250C PO; +DICY10CA59 PO; +FENO145T PO; +GABA-331 PO; -GLYB1TAB2 PO; -LANS30CA10 PO; +LANS30CA53 PO; +LEVO750T64 PO; +LIP10 PO; +MECL-225 PO; +METO50TA7 PO; -NITR-85 PO; +OLME40TA70 PO; +ONDA-8 TL; +SIMV-345 PO; -SIMV40TA2 PO; +VERA120C2 PO; -VERA300C6 PO; +ZOLP5TAB2 PO
[2022-10-12 13:12] VITALS: BP_SYST 156; PULSE 95; RESP 16; TEMP 98; O2SAT 100
[2022-10-12 13:49] LABS: BASOPHILS # (AUTO) 0.1 K/uL (0.0-0.2); BASOPHILS % (AUTO) 0.7 % (0.0-2.0); EOSINOPHILS # (AUTO) 0.1 K/uL (0.0-0.4); EOSINOPHILS % (AUTO) 0.6 % (0.0-4.0); HEMATOCRIT 43.9 % (36-48); HEMOGLOBIN 14.4 g/dL (12.0-16.0); LYMPHOCYTES # (AUTO) 3.1 K/uL (1.0-5.5); LYMPHOCYTES % (AUTO) 32.7 % (20.5-51.5); MEAN CORPUSCULAR HEMOGLOBIN 29 pg (27-31); MEAN CORPUSCULAR HGB CONC 33 % (32-36); MEAN CORPUSCULAR VOLUME 89 fL (79.0-98.0); MONOCYTES # (AUTO) 0.6 K/uL (0.0-1.0); MONOCYTES % (AUTO) 6.5 % (1.7-9.3); NEUTROPHILS # (AUTO) 5.6 K/uL (1.8-7.7); NEUTROPHILS % (AUTO) 59.5 % (40.0-70.0); PLATELET COUNT (AUTO) 264 K/uL (130-430); RED BLOOD CELL COUNT(AUTO) 4.93 MIL/uL (4.2-6.2); WHITE BLOOD COUNT (AUTO) 9.4 K/uL (4.8-10.8)
[2022-10-12 14:24] LABS: ALANINE AMINOTRANSFERASE 27 U/L (12-78); ALBUMIN 3.5 g/dL (3.4-4.8); ANION GAP 13 (5-15); ASPARTATE AMINOTRANSFERASE 29 U/L (10-37); CALCIUM 9.3 mg/dL (8.4-11.0); CARBON DIOXIDE 26 mmol/L (23-29); CHLORIDE 99 mmol/L (98-107); CREATININE 1.04 mg/dL (0.55-1.30); GLUCOSE 277 mg/dL (74-106); LIPASE 31 U/L (73-393); SODIUM SERUM 138 mmol/L (136-145); TOTAL BILIRUBIN 0.4 mg/dL (0.0-1.0); TOTAL PROTEIN, SERUM 7.7 g/dL (6.4-8.3); UREA NITROGEN, BLOOD 11 mg/dL (8-21)
[2022-10-12 14:29] LABS: POTASSIUM 2.8 mmol/L (3.5-5.1)
[2022-10-12] MEDS ORDERED: POTASSIUM CHLORIDE 20 MEQ TAB.PRT.SR PO ONE (15:00)
[2022-10-12] MEDS ORDERED: KETOROLAC TROMETHAMINE 15 MG VIAL IM ONE (17:30)
[2022-10-12] MEDS ORDERED: ACETAMINOPHEN 500 MG TABLET PO ONE (17:30)
[2022-10-12] MEDS ORDERED: metroNIDAZOLE 500 mg/NS 100 ML IV ONE (18:15)
[2022-10-12] MEDS ORDERED: CIPROFLOXACIN LACT 400 MG/D5W 200 ML IV SCH (18:15)
[2022-10-12] MEDS ORDERED: CIPROFLOXACIN LACT 400 MG/D5W 200 ML IV ONE (18:15)
[2022-10-12] MEDS ORDERED: NEU300 PO (19:06)
[2022-10-12] MEDS ORDERED: MIRT-91 PO (19:06)
[2022-10-12] MEDS ORDERED: HYDR12.55 PO (19:06)
[2022-10-12] MEDS ORDERED: TRAM50TA2 PO (19:06)
[2022-10-12] MEDS: NACL 0.9% 1,000 ML IV SCH (19:53)
[2022-10-12 20:01] LABS: CLARITY/URINE SLIGHTLY CLOUDY (CLEAR); COLOR,URINE YELLOW (YELLOW)
[2022-10-12 20:02] LABS: BILIRUBIN,URINE NEGATIVE (NEGATIVE); BLOOD, URINE 1+ (NEGATIVE); GLUCOSE,URINE 1+ (NEGATIVE); KETONES,URINE NEGATIVE (NEGATIVE); LEUKOCYTE ESTERASE ,URINE TRACE (NEGATIVE); NITRITE, URINE NEGATIVE (NEGATIVE); PROTEIN URINE 1+ (NEGATIVE); UROBILINOGEN,URINE 0.2 (0.2-1.0)
[2022-10-12 20:04] LABS: BACTERIA,URINE MODERATE /HPF (None Seen)
[2022-10-12] MEDS ORDERED: LORazepam 2 MG/ML VIAL IVP PRN (20:30)
[2022-10-12] MEDS ORDERED: DOCUSATE SODIUM 100 MG CAPSULE PO PRN (20:30)
[2022-10-12] MEDS ORDERED: POTASSIUM CHLORIDE 20 MEQ TAB.PRT.SR PO PRN (20:30)
[2022-10-12] MEDS ORDERED: NALOXONE HCL 0.4 MG/ML AMP (NARCAN) IVP PRN ×2 (20:30)
[2022-10-12] MEDS ORDERED: ACETAMINOPHEN 325 MG TABLET PO PRN ×2 (20:30→20:45)
[2022-10-12] MEDS ORDERED: MUPIROCIN 2% TOPICAL OINTMENT 22 GM NS PRN (20:30)
[2022-10-12] MEDS ORDERED: cloNIDine HCL 0.1 MG TABLET PO PRN (20:30)
[2022-10-12] MEDS ORDERED: MORPHINE 2 MG/ML INJ. SYRINGE IVP PRN (20:30)
[2022-10-12] MEDS ORDERED: MAGNESIUM SULFATE 50 ML IV PRN (20:30)
[2022-10-12] MEDS ORDERED: NACL 0.9% 1,000 ML IV SCH (20:30)
[2022-10-12] MEDS ORDERED: ZOLPIDEM TARTRATE 5 MG TABLET PO PRN (20:30)
[2022-10-12 21:45] VITALS: BP_SYST 146; PULSE 72; RESP 18; TEMP 98
[2022-10-12] MEDS: amLODIPine BESYLATE 5 MG TABLET PO SCH (23:24)
[2022-10-13] MEDS: HEPARIN SODIUM,PORCINE 5,000 UNITS/ML VIAL SUBCUT SCH ×3 (00:44→21:27)
[2022-10-13] MEDS ORDERED: metroNIDAZOLE 500 mg/NS 100 ML IV ONE (01:28)
[2022-10-13] MEDS: metroNIDAZOLE 500 mg/NS 100 ML IV SCH ×3 (05:33→21:13)
[2022-10-13 06:02] LABS: BASOPHILS # (AUTO) 0.1 K/uL (0.0-0.2); BASOPHILS % (AUTO) 0.6 % (0.0-2.0); EOSINOPHILS # (AUTO) 0.1 K/uL (0.0-0.4); EOSINOPHILS % (AUTO) 1.4 % (0.0-4.0); HEMATOCRIT 38.4 % (36-48); HEMOGLOBIN 12.4 g/dL (12.0-16.0); LYMPHOCYTES # (AUTO) 4.9 K/uL (1.0-5.5); LYMPHOCYTES % (AUTO) 46.7 % (20.5-51.5); MEAN CORPUSCULAR HEMOGLOBIN 29 pg (27-31); MEAN CORPUSCULAR HGB CONC 32 % (32-36); MEAN CORPUSCULAR VOLUME 89 fL (79.0-98.0); MONOCYTES # (AUTO) 0.8 K/uL (0.0-1.0); MONOCYTES % (AUTO) 7.5 % (1.7-9.3); NEUTROPHILS # (AUTO) 4.6 K/uL (1.8-7.7); NEUTROPHILS % (AUTO) 43.8 % (40.0-70.0); PLATELET COUNT (AUTO) 267 K/uL (130-430); RED BLOOD CELL COUNT(AUTO) 4.29 MIL/uL (4.2-6.2); RED CELL DISTRIBUTION WIDTH 12.9 % (9.0-15.0); WHITE BLOOD COUNT (AUTO) 10.5 K/uL (4.8-10.8)
[2022-10-13 06:15] LABS: ANION GAP 9 (5-15); CALCIUM 8.4 mg/dL (8.4-11.0); CARBON DIOXIDE 27 mmol/L (23-29); CHLORIDE 104 mmol/L (98-107); CREATININE 0.91 mg/dL (0.55-1.30); GLUCOSE 173 mg/dL (74-106); POTASSIUM 3.6 mmol/L (3.5-5.1); SODIUM SERUM 140 mmol/L (136-145); UREA NITROGEN, BLOOD 8 mg/dL (8-21)
[2022-10-13] MEDS ORDERED: DEXTROSE 50% JECT 50 ML DISP.SYRIN IVP PRN (07:45)
[2022-10-13] MEDS ORDERED: OLMESARTAN MEDOXOMIL 20 MG TABLET PO SCH (09:00)
[2022-10-13] MEDS: GABAPENTIN 300 MG CAPSULE PO SCH (11:52)
[2022-10-13] MEDS: amLODIPine BESYLATE 5 MG TABLET PO SCH ×2 (11:52→21:14)
[2022-10-13] MEDS: LOSARTAN POTASSIUM 50 MG TABLET (COZAAR) PO SCH (11:53)
[2022-10-13] MEDS: BETHANECHOL CHLORIDE 25 MG TABLET (URECHOLINE) PO SCH ×2 (11:54→21:13)
[2022-10-13] MEDS: ATORVASTATIN 20 MG TABLET PO SCH (11:56)
[2022-10-13] MEDS: CIPROFLOXACIN HCL 500 MG TABLET PO SCH ×2 (11:56→21:15)
[2022-10-13] MEDS: METOPROLOL SUCCINATE 50 MG TAB.SR.24H (TOPROL XL) PO SCH ×2 (11:57→21:14)
[2022-10-13] MEDS: NACL 0.9% 1,000 ML IV SCH ×2 (12:04→20:00)
[2022-10-13] MEDS: INSULIN LISPRO SLIDING SCALE 100 UNITS/ML, 3 ML VIAL (humaLOG) SUBCUT PRN ×2 (12:30→21:26)
[2022-10-13 20:00] VITALS: BP_SYST 144; PULSE 71; RESP 18; TEMP 97.5; O2SAT 97
[2022-10-13] MEDS ORDERED: MIRTAZAPINE 15 MG TABLET PO SCH (21:00)
[2022-10-13] MEDS: ONDANSETRON HCL 4 MG/2 ML VIAL IVP PRN (23:43)
[2022-10-14 00:19] VITALS: BP_SYST 143; PULSE 104; RESP 18; TEMP 97.8; O2SAT 97
[2022-10-14] MEDS: MORPHINE 2 MG/ML INJ. SYRINGE IVP PRN ×2 (02:00→06:22)
[2022-10-14] MEDS: metroNIDAZOLE 500 mg/NS 100 ML IV SCH (05:53)
[2022-10-14] MEDS: NACL 0.9% 1,000 ML IV SCH (05:54)
[2022-10-14] MEDS: ONDANSETRON HCL 4 MG/2 ML VIAL IVP PRN ×2 (06:03→14:31)
[2022-10-14] MEDS: INSULIN LISPRO SLIDING SCALE 100 UNITS/ML, 3 ML VIAL (humaLOG) SUBCUT PRN ×2 (06:15→12:01)
[2022-10-14 08:00] VITALS: BP_SYST 156; PULSE 77; RESP 16; TEMP 98.6; O2SAT 96
[2022-10-14] MEDS ORDERED: CIPR500T5 PO (08:48)
[2022-10-14] MEDS ORDERED: METR-154 PO (08:48)
[2022-10-14] MEDS ORDERED: HYDR-3917 PO (08:48)
[2022-10-14] MEDS: LOSARTAN POTASSIUM 50 MG TABLET (COZAAR) PO SCH (08:52)
[2022-10-14] MEDS: METOPROLOL SUCCINATE 50 MG TAB.SR.24H (TOPROL XL) PO SCH (08:53)
[2022-10-14] MEDS: GABAPENTIN 300 MG CAPSULE PO SCH (08:53)
[2022-10-14] MEDS: BETHANECHOL CHLORIDE 25 MG TABLET (URECHOLINE) PO SCH (08:54)
[2022-10-14] MEDS: ATORVASTATIN 20 MG TABLET PO SCH (08:54)
[2022-10-14] MEDS: amLODIPine BESYLATE 5 MG TABLET PO SCH (08:55)
[2022-10-14] MEDS: HEPARIN SODIUM,PORCINE 5,000 UNITS/ML VIAL SUBCUT SCH (09:21)
[2022-10-14] MEDS: CIPROFLOXACIN HCL 500 MG TABLET PO SCH (11:43)
[2022-10-14 12:00] VITALS: BP_SYST 162; PULSE 94; RESP 20; TEMP 97.4; O2SAT 97
[2022-10-14 13:52] VITALS: BP_SYST 156; PULSE 71; RESP 16; TEMP 97.5; O2SAT 96
== END 2022-10-14 14:50 | disposition home or self-care (01) | DRG 392 ==
LOC: SED 13:08 → SMU 18:53
PROVIDERS: ADMIT General Practice; ATTEND General Practice
DX: K57.32 Diverticulitis of large intestine without perforation or abscess without bleeding (principal); N39.0 Urinary tract infection, site not specified; I69.354 Hemiplegia and hemiparesis following cerebral infarction affecting left non-dominant side; E87.6 Hypokalemia; E11.40 Type 2 diabetes mellitus with diabetic neuropathy, unspecified; E78.00 Pure hypercholesterolemia, unspecified; E11.65 Type 2 diabetes mellitus with hyperglycemia; E78.5 Hyperlipidemia, unspecified; Z88.0 Allergy status to penicillin; I12.9 Hypertensive chronic kidney disease with stage 1 through stage 4 chronic kidney disease, or unspecified chronic kidney disease; E11.22 Type 2 diabetes mellitus with diabetic chronic kidney disease; N18.9 Chronic kidney disease, unspecified
CPT/HCPCS: 36415; 71045; 76376; 80048; 80053; 81000; 82962; 83037; 83605; 83690; 83735; 83880; 84484; 85025; 87040; 87086; 93005; 96365; 96367; 99285; J0744; J1644; J2270; J2405; J3490; J7030; Q9967